=== PATIENT | male | born 1985 | race Caucasian/White ===

== ENCOUNTER 2019-01-09 20:07 | Inpatient (IN) | payer OTHER ==
[2019-01-09] MEDS ORDERED: SODIUM CHLORIDE 0.9% 1,000 ML IV STA (20:16)
--- NOTE | 2019-01-09 20:29 | ED ---
General Adult HPI - General Chief complaint: Overdose Stated complaint: overdose Time Seen by Provider: 01/09/19 20:16 Source: patient, RN notes reviewed, old records reviewed Mode of arrival: wheelchair Limitations: no limitations - History of Present Illness Initial comments: 33-year-old female presents with suicide attempt, overdose on ibuprofen. Blair bueno took a total of 70 200 mg Motrin at approximately 5 PM followed by 10 800 mg Motrin at approximately 6:30. He also admits to drinking some alcohol. He admits this was a suicide attempt. Denies any other ingestion, no Tylenol or aspirin. He has no physical complaints the time my evaluation. - Related Data Home Medications Medication Instructions Recorded Confirmed No Known Home Medications 01/09/19 01/09/19 Allergies Allergy/AdvReac Type Severity Reaction Status Date / Time No Known Allergies Allergy Verified 01/10/19 13:21 Review of Systems ROS Statement: Those systems with pertinent positive or pertinent negative responses have been documented in the HPI. ROS Other: All systems not noted in ROS Statement are negative. Past Medical History Past Medical History: No Reported History History of Any Multi-Drug Resistant Organisms: None Reported Past Surgical History: No Surgical Hx Reported Past Psychological History: No Psychological Hx Reported Smoking Status: Current every day smoker Past Alcohol Use History: Daily Past Drug Use History: None Reported - Past Family History Grandparents Additional Family Medical History / Comment(s): Grandmother-breast cancer colon cancer. Grandfather-gallbladder cancer. Grandfather of cardiac arrest, thinks he may have had heart disease General Exam Limitations: no limitations General appearance: alert, in no apparent distress Head exam: Present: atraumatic, normocephalic Eye exam: Present: normal appearance, PERRL, EOMI ENT exam: Present: normal exam Neck exam: Present: normal inspection. Absent: tenderness, meningismus Respiratory exam: Present: normal lung sounds bilaterally. Absent: respiratory distress, wheezes Cardiovascular Exam: Present: regular rate, normal rhythm GI/Abdominal exam: Present: soft. Absent: distended, tenderness, guarding Extremities exam: Present: normal inspection, normal capillary refill. Absent: pedal edema Neurological exam: Present: alert, oriented X3, CN II-XII intact. Absent: motor sensory deficit Psychiatric exam: Present: depressed, flat affect, suicidal ideation Skin exam: Present: warm, dry, intact. Absent: cyanosis, diaphoretic Course Vital Signs 01/09/19 01/09/19 01/09/19 20:12 20:50 21:22 Temperature 98.0 F 98.2 F Pulse Rate 77 61 Respiratory 20 18 19 Rate Blood Pressure 122/76 128/80 O2 Sat by Pulse 98 98 Oximetry 01/10/19 01/10/19 01/10/19 02:02 03:00 04:00 Temperature Pulse Rate 78 Respiratory 18 19 17 Rate Blood Pressure 119/81 O2 Sat by Pulse 98 Oximetry 01/10/19 01/10/19 01/10/19 05:00 08:04 09:26 Temperature 97.9 F Pulse Rate 60 64 Respiratory 17 16 16 Rate Blood Pressure 112/76 119/76 O2 Sat by Pulse 100 100 Oximetry 01/10/19 10:26 Temperature Pulse Rate 84 Respiratory 16 Rate Blood Pressure 126/76 O2 Sat by Pulse 99 Oximetry - Reevaluation(s) Reevaluation #1: 01/09/19 2100 Case is discussed with poison control, recommended supportive care, no further recommendations at this time. Patient can be medically cleared at 10 PM. However patient does have alcohol level CLVI, he will be medically cleared when sober. He will be evaluated by EPS at that time. EKG Findings - EKG Comments: EKG Findings:: EKG: Normal sinus rhythm, rate of 63, NC interval 148, QRS duration 98 QTC 423, no signs of ischemia or arrhythmia Medical Decision Making - Medical Decision Making Patient's care was signed out to the oncoming physician Dr. Mirza. Upon review of the medical record it does appear this patient was admitted for psychiatric evaluation and treatment. - Lab Data Result diagrams: 01/09/19 20:09 01/11/19 08:48 Lab Results 01/09/19 01/09/19 01/09/19 Range/Units 20:09 20:09 20:09 WBC 10.1 (3.8-10.6) k/uL RBC 4.90 (4.30-5.90) m/uL Hgb 15.5 (13.0-17.5) gm/dL Hct 45.8 (39.0-53.0) % MCV 93.5 (80.0-100.0) fL MCH 31.5 (25.0-35.0) pg MCHC 33.7 (31.0-37.0) g/dL RDW 13.7 (11.5-15.5) % Plt Count 228 (150-450) k/uL Neutrophils % 62 % Lymphocytes % 25 % Monocytes % 6 % Eosinophils % 4 % Basophils % 1 % Neutrophils # 6.2 (1.3-7.7) k/uL Lymphocytes # 2.5 (1.0-4.8) k/uL Monocytes # 0.6 (0-1.0) k/uL Eosinophils # 0.4 (0-0.7) k/uL Basophils # 0.1 (0-0.2) k/uL Sodium 144 (137-145) mmol/L Potassium 3.7 (3.5-5.1) mmol/L Chloride 103 (98-107) mmol/L Carbon Dioxide 28 (22-30) mmol/L Anion Gap 13 mmol/L BUN 11 (9-20) mg/dL Creatinine 0.79 (0.66-1.25) mg/dL Est GFR (CKD-EPI)AfAm >90 (>60 ml/min/1.73 sqM) Est GFR (CKD-EPI)NonAf >90 (>60 ml/min/1.73 sqM) Glucose 67 L (74-99) mg/dL Plasma Lactic Acid Tyson 1.4 (0.7-2.0) mmol/L Calcium 9.8 (8.4-10.2) mg/dL Magnesium 2.4 H (1.6-2.3) mg/dL Total Bilirubin 0.7 (0.2-1.3) mg/dL AST 40 (17-59) U/L ALT 24 (21-72) U/L Alkaline Phosphatase 84 (38-126) U/L Creatine Kinase 407 H (55-170) U/L Total Protein 8.0 (6.3-8.2) g/dL Albumin 4.7 (3.5-5.0) g/dL Urine Color Urine Appearance (Clear) Urine pH (5.0-8.0) Ur Specific Boron (1.001-1.035) Urine Protein (Negative) Urine Glucose (UA) (Negative) Urine Ketones (Negative) Urine Blood (Negative) Urine Nitrite (Negative) Urine Bilirubin (Negative) Urine Urobilinogen (<2.0) mg/dL Ur Leukocyte Esterase (Negative) Salicylates <1.0 mg/dL Urine Opiates Screen (NotDetected) Ur Oxycodone Screen (NotDetected) Urine Methadone Screen (NotDetected) Ur Propoxyphene Screen (NotDetected) Acetaminophen <10.0 ug/mL Ur Barbiturates Screen (NotDetected) U Tricyclic Antidepress (NotDetected) Ur Phencyclidine Scrn (NotDetected) Ur Amphetamines Screen (NotDetected) U Methamphetamines Scrn (NotDetected) U Benzodiazepines Scrn (NotDetected) Urine Cocaine Screen (NotDetected) U Marijuana (THC) Screen (NotDetected) Serum Alcohol 156 mg/dL 01/09/19 01/09/19 Range/Units 21:51 21:51 WBC (3.8-10.6) k/uL RBC (4.30-5.90) m/uL Hgb (13.0-17.5) gm/dL Hct (39.0-53.0) % MCV (80.0-100.0) fL MCH (25.0-35.0) pg MCHC (31.0-37.0) g/dL RDW (11.5-15.5) % Plt Count (150-450) k/uL Neutrophils % % Lymphocytes % % Monocytes % % Eosinophils % % Basophils % % Neutrophils # (1.3-7.7) k/uL Lymphocytes # (1.0-4.8) k/uL Monocytes # (0-1.0) k/uL Eosinophils # (0-0.7) k/uL Basophils # (0-0.2) k/uL Sodium (137-145) mmol/L Potassium (3.5-5.1) mmol/L Chloride (98-107) mmol/L Carbon Dioxide (22-30) mmol/L Anion Gap mmol/L BUN (9-20) mg/dL Creatinine (0.66-1.25) mg/dL Est GFR (CKD-EPI)AfAm (>60 ml/min/1.73 sqM) Est GFR (CKD-EPI)NonAf (>60 ml/min/1.73 sqM) Glucose (74-99) mg/dL Plasma Lactic Acid Tyson (0.7-2.0) mmol/L Calcium (8.4-10.2) mg/dL Magnesium (1.6-2.3) mg/dL Total Bilirubin (0.2-1.3) mg/dL AST (17-59) U/L ALT (21-72) U/L Alkaline Phosphatase (38-126) U/L Creatine Kinase (55-170) U/L Total Protein (6.3-8.2) g/dL Albumin (3.5-5.0) g/dL Urine Color Light Yellow Urine Appearance Clear (Clear) Urine pH 6.0 (5.0-8.0) Ur Specific Boron 1.004 (1.001-1.035) Urine Protein Negative (Negative) Urine Glucose (UA) Negative (Negative) Urine Ketones Negative (Negative) Urine Blood Negative (Negative) Urine Nitrite Negative (Negative) Urine Bilirubin Negative (Negative) Urine Urobilinogen <2.0 (<2.0) mg/dL Ur Leukocyte Esterase Negative (Negative) Salicylates mg/dL Urine Opiates Screen Not Detected (NotDetected) Ur Oxycodone Screen Not Detected (NotDetected) Urine Methadone Screen Not Detected (NotDetected) Ur Propoxyphene Screen Not Detected (NotDetected) Acetaminophen ug/mL Ur Barbiturates Screen Not Detected (NotDetected) U Tricyclic Antidepress Not Detected (NotDetected) Ur Phencyclidine Scrn Not Detected (NotDetected) Ur Amphetamines Screen Not Detected (NotDetected) U Methamphetamines Scrn Not Detected (NotDetected) U Benzodiazepines Scrn Not Detected (NotDetected) Urine Cocaine Screen Not Detected (NotDetected) U Marijuana (THC) Screen Not Detected (NotDetected) Serum Alcohol mg/dL Disposition Clinical Impression: Suicide attempt, Overdose of nonsteroidal anti-inflammatory drug (NSAID) Disposition: ADMITTED IP TO [facility] Condition: Stable Is patient prescribed a controlled substance at d/c from ED?: No Decision to Admit Reason: Admit from EC
[2019-01-09 20:57] LABS: Basophils # (A) 0.1 k/uL (0-0.2); Basophils % (A) 1 %; Eosinophils # (A) 0.4 k/uL (0-0.7); Eosinophils % (A) 4 %; HCT 45.8 % (39.0-53.0); HGB 15.5 gm/dL (13.0-17.5); Lymphocytes # (A) 2.5 k/uL (1.0-4.8); Lymphocytes % (A) 25 %; MCH 31.5 pg (25.0-35.0); MCHC 33.7 g/dL (31.0-37.0); MCV 93.5 fL (80.0-100.0); Mean Platelet Volume 7.2; Monocytes # (A) 0.6 k/uL (0-1.0); Monocytes % (A) 6 %; Neutrophils # (A) 6.2 k/uL (1.3-7.7); Neutrophils % (A) 62 %; Platelet Count 228 k/uL (150-450); RDW 13.7 % (11.5-15.5); WBC 10.1 k/uL (3.8-10.6)
[2019-01-09 21:07] LABS: ALT 24 U/L (21-72); AST 40 U/L (17-59); Acetaminophen <10.0 ug/mL; Albumin 4.7 g/dL (3.5-5.0); Alkaline Phosphatase 84 U/L (38-126); Anion Gap 13 mmol/L; Blood Urea Nitrogen 11 mg/dL (9-20); Calcium 9.8 mg/dL (8.4-10.2); Carbon Dioxide 28 mmol/L (22-30); Chloride 103 mmol/L (98-107); Creatine Kinase 407 U/L (55-170); Glucose 67 mg/dL (74-99); Magnesium 2.4 mg/dL (1.6-2.3); Potassium 3.7 mmol/L (3.5-5.1); Salicylate <1.0 mg/dL; Sodium 144 mmol/L (137-145); Total Bilirubin 0.7 mg/dL (0.2-1.3)
[2019-01-09 21:29] LABS: Alcohol 156 mg/dL
[2019-01-09 22:02] LABS: Appearance,Urine Clear (Clear); Bilirubin,Urine Negative (Negative); Blood,Urine Negative (Negative); Color,Urine Light Yellow; Glucose,Urine (UA) Negative (Negative); Ketones,Urine Negative (Negative); Leukocyte Esterase,Urine Negative (Negative); Nitrite,Urine Negative (Negative); Protein,Urine Negative (Negative); Specific Gravity,Urine 1.004 (1.001-1.035); Urobilinogen,Urine <2.0 mg/dL (<2.0)
[2019-01-09 22:12] LABS: Amphetamine Screen,Urine Not Detected (NotDetected); Barbiturate Screen,Urine Not Detected (NotDetected); Benzodiazepines Screen,Urine Not Detected (NotDetected); Cocaine Screen,Urine Not Detected (NotDetected); Methadone Screen, Urine Not Detected (NotDetected); Opiate Screen,Urine Not Detected (NotDetected); Oxycodone Screen, Urine Not Detected (NotDetected); Phencyclidine Screen,Urine Not Detected (NotDetected); Tricyclic Antidepressant,Urine Not Detected (NotDetected); Urn Cannabinoid Scrn Not Detected (NotDetected)
[2019-01-10] MEDS: ARTIFICIAL TEARS-HYPROMELLOSE DROPS 15 ML BTL BOTH EYES PRN (01:56)
[2019-01-10] MEDS ORDERED: NICOTINE 21MG/24HR PATCH TRANSDERM STA (02:14)
[2019-01-10] MEDS ORDERED: MAG HYDROX/AL HYDROX/SIMETH 30 ML, HYOSCYAMINE ELIXIR 10 ML, CIMETIDINE HCL 300 MG, LID... PO ONE ×4 (03:55)
[2019-01-10] MEDS ORDERED: FAMOTIDINE 20 MG TAB PO STA (07:39)
[2019-01-10] MEDS ORDERED: LORazepam 1 MG TAB PO PRN (11:42)
[2019-01-10] MEDS ORDERED: MAG HYDROX/AL HYDROX/SIMETH 30 ML CUP PO PRN (11:42)
[2019-01-10] MEDS ORDERED: MAGNESIUM HYDROXIDE 2,400 MG/10 ML CUP PO PRN (11:42)
[2019-01-10] MEDS ORDERED: ACETAMINOPHEN TAB 325 MG TAB PO PRN (11:42)
[2019-01-10] MEDS ORDERED: ZIPRASIDONE 20 MG VIAL IM PRN (11:42)
[2019-01-10 12:55] VITALS: BMI 22.2
[2019-01-10] MEDS: NICOTINE 14MG/24HR PATCH TRANSDERM SCH (13:03)
[2019-01-10 16:27] LABS: Albumin 4.6 g/dL (3.5-5.0); Calcium 9.8 mg/dL (8.4-10.2); Potassium 4.9 mmol/L (3.5-5.1); Total Bilirubin 0.8 mg/dL (0.2-1.3); Total Protein 7.7 g/dL (6.3-8.2)
[2019-01-10] MEDS: PANTOPRAZOLE 40 MG TABLET PO SCH (17:10)
[2019-01-10] MEDS ORDERED: CALCIUM CARBONATE 500 MG CHEWABLE PO PRN (18:30)
--- NOTE | 2019-01-10 18:38 | P.HPMEDMHU ---
History of Present Illness H&P Date: 01/10/19 Chief Complaint: Depression Patient is a 33-year-old male with no significant past medical history who initially presented to the ER after suicide attempt by ingesting 70 pills of 200 mg Motrin and temples of 800 mg Motrin. In the ER he underwent an extensive evaluation. He was medically cleared. Has subsequently been admitted to the mental health unit. Patient seen and examined in library. He states that yesterday evening he became very depressed as his girlfriend broke up with him. They've been texting back and forth, and she was not being receptive. He states he's been depressed about their breakup for the last 3 weeks as he thought that they would get , however she has been partying and using illicit substances. Yesterday her took 70, 200mg and 10, 800 mg Motin. He then drank a 6 pack of beer, and texted his family that he loved them. His sister went to his house and picked him up and brought him here. He intially was having abdominal pain, upset stomach, and some nausea. It has since improved. He has not had and chest pain recently but did back in November, it was sharp and lasted for a few minuts associated with some shortness of breath, and resolved. I encouraged him to see his PCP about this after discharge from [facility] for further evaluation. Integument denies any recent cough, cold, fever, flu, nausea, vomiting, or diarrhea. States he had some enlarged lymph nodes in his right groin a couple of weeks ago he thought it was due to his harness he wears for work and it has resolved. I encouraged him to again see his PCP if this were to recur. Review of Systems Pertinent positives and negatives as discussed in HPI, a complete review of systems was performed and all other systems are negative. Past Medical History Past Medical History: No Reported History History of Any Multi-Drug Resistant Organisms: None Reported Additional Past Surgical History / Comment(s): [place] teeth Past Psychological History: No Psychological Hx Reported Smoking Status: Current every day smoker Past Alcohol Use History: Heavy Additional Past Alcohol Use History / Comment(s): Drinks 2-6 beers 4-6 times weekly Past Drug Use History: None Reported Additional Drug Use History / Comment(s): HX of recreational drug use when younger, nothing currently. Additional History: Lives alone, works as a finishing trimmer - Past Family History Grandparents Additional Family Medical History / Comment(s): Grandmother-breast cancer colon cancer. Grandfather-gallbladder cancer. Grandfather of cardiac arrest, thinks he may have had heart disease Medications and Allergies Home Medications Medication Instructions Recorded Confirmed Type No Known Home Medications 01/09/19 01/09/19 History Allergies Allergy/AdvReac Type Severity Reaction Status Date / Time No Known Allergies Allergy Verified 01/10/19 13:21 Physical Exam Osteopathic Statement: *. No significant issues noted on an osteopathic structural exam other than those noted in the History and Physical/Consult. Vitals: Vital Signs Temp Pulse Pulse Resp BP BP Pulse Ox 01/10/19 12:43 96.6 F L 76 16 132/83 98 01/10/19 12:16 97.9 F 84 16 126/76 99 01/10/19 10:26 84 16 126/76 99 01/10/19 09:26 64 16 119/76 100 01/10/19 08:04 97.9 F 60 16 112/76 100 01/10/19 05:00 17 01/10/19 04:00 17 01/10/19 03:00 19 01/10/19 02:02 78 18 119/81 98 01/09/19 21:22 98.2 F 61 19 128/80 98 01/09/19 20:50 18 01/09/19 20:12 98.0 F 77 20 122/76 98 General: non toxic, no distress, appears at stated age, normal weight Derm: no unusual rashes/lesions no unusual ecchymoses, warm, dry Head: atraumatic, normocephalic, symmetric Eyes: EOMI, no lid lag, anicteric sclera, pupils equal round reactive to light ENT: Nose and ears atraumatic, no thrush, no pharyngeal erythema Neck: No thyromegaly, no cervical lymphadenopathy, trachea midline, supple Mouth: no lip lesion, mucus membranes moist Cardiovascular: S1S2 reg, no murmur, positive posterior tibial pulse bilateral, no edema, capillary refill less than 2 seconds Lungs: CTA bilateral, no rhonchi, no rales , no accessory muscle use Abdominal: soft, + tender to palpation, Periumbilical, no guarding, no appreciable organomegaly, normal bowel sounds Ext: no gross muscle atrophy, muscle strength 5 out of 5 in all 4 extremities grossly, no contractures, Neuro: CN II-XI grossly intact, light touch intact all 4 extremities, finger to nose within normal limits, Psych: Alert, oriented, appropriate affect Cranial Nerve Examination - Cranial Nerves Cranial Nerve II- Optic: Intact Cranial Nerve III- Oculomotor: Intact Cranial Nerve IV- Trochlear: Intact Cranial Nerve V- Trigeminal: Intact Cranial Nerve - Abducens: Intact Cranial Nerve VII- Facial: Intact Cranial Nerve VIII- Auditory: Intact Cranial Nerve IX- Glossopharyngeal: Intact Cranial Nerve X- Vagus: Intact Cranial Nerve XI- Accessory: Intact Cranial Nerve XII- Hypoglossal: Intact Results CBC & Chem 7: 01/09/19 20:09 01/10/19 15:55 Labs: Abnormal Lab Results - Last 24 Hours (Table) 01/09/19 Range/Units 20:09 Glucose 67 L (74-99) mg/dL Magnesium 2.4 H (1.6-2.3) mg/dL Creatine Kinase 407 H (55-170) U/L Thrombosis Risk Factor Assmnt - Choose All That Apply Any of the Below Risk Factors Present?: No Other Risk Factors: No Thrombosis Risk Factor Assessment Level: Very Low Risk Assessment and Plan Assessment: Overdose of salicylate, with suicidal ideation -Stat repeat basic metabolic profile -Repeat renal function again in a.m. -PPI 5 days, when necessary Tums for abdominal pain -Discussed with patient in detail monitoring stools for signs and symptoms of blood -Also asked patient to notify nursing if pain gets worse Tobacco abuse -Cessation -Nicotine replacement Remote history of chest pain -Patient to follow up with PCP and discharged for further evaluation Depression with suicidal ideation -Your psych management Thank you for allowing us to participate in the care of this patient. We will follow peripherally. Do not hesitate to contact us with questions. Someone can be reached from the [facility] hospitalist group at all hours of the day at [phone].
[2019-01-11 01:05] LABS: Hemoglobin A1C 5.5 % (4.0-6.0)
[2019-01-11] MEDS: ARTIFICIAL TEARS-HYPROMELLOSE DROPS 15 ML BTL BOTH EYES PRN ×2 (06:07→22:25)
[2019-01-11] MEDS: PANTOPRAZOLE 40 MG TABLET PO SCH (09:09)
[2019-01-11] MEDS: NICOTINE 14MG/24HR PATCH TRANSDERM SCH (09:10)
[2019-01-11 09:41] LABS: ALT 24 U/L (21-72); AST 28 U/L (17-59); Albumin 4.6 g/dL (3.5-5.0); Alkaline Phosphatase 53 U/L (38-126); Anion Gap 7 mmol/L; Blood Urea Nitrogen 12 mg/dL (9-20); Calcium 9.8 mg/dL (8.4-10.2); Carbon Dioxide 31 mmol/L (22-30); Chloride 104 mmol/L (98-107); Cholesterol 149 mg/dL (<200); Glucose 52 mg/dL (74-99); HDL Cholesterol 80 mg/dL (40-60); LDL Cholesterol,Calculated 51 mg/dL (0-99); Potassium 4.5 mmol/L (3.5-5.1); Sodium 142 mmol/L (137-145); Total Bilirubin 0.8 mg/dL (0.2-1.3); Total Protein 7.3 g/dL (6.3-8.2); Triglycerides 90 mg/dL (<150)
--- NOTE | 2019-01-11 12:00 | P.HP ---
Psychiatric H&P - . History & Physical: Allergies Allergy/AdvReac Type Severity Reaction Status Date / Time No Known Allergies Allergy Verified 01/10/19 13:21 Vital Signs Temp 97.8 F 01/11/19 05:35 Pulse 94 01/11/19 05:35 Resp 18 01/11/19 05:35 BP 115/74 01/11/19 05:35 Pulse Ox 98 01/10/19 12:43 Laboratory Last Values WBC 10.1 k/uL (3.8-10.6) 01/09/19 20:09 RBC 4.90 m/uL (4.30-5.90) 01/09/19 20:09 Hgb 15.5 gm/dL (13.0-17.5) 01/09/19 20:09 Hct 45.8 % (39.0-53.0) 01/09/19 20:09 MCV 93.5 fL (80.0-100.0) 01/09/19 20:09 MCH 31.5 pg (25.0-35.0) 01/09/19 20:09 MCHC 33.7 g/dL (31.0-37.0) 01/09/19 20:09 RDW 13.7 % (11.5-15.5) 01/09/19 20:09 Plt Count 228 k/uL (150-450) 01/09/19 20:09 Neutrophils % 62 % 01/09/19 20:09 Lymphocytes % 25 % 01/09/19 20:09 Monocytes % 6 % 01/09/19 20:09 Eosinophils % 4 % 01/09/19 20:09 Basophils % 1 % 01/09/19 20:09 Neutrophils # 6.2 k/uL (1.3-7.7) 01/09/19 20:09 Lymphocytes # 2.5 k/uL (1.0-4.8) 01/09/19 20:09 Monocytes # 0.6 k/uL (0-1.0) 01/09/19 20:09 Eosinophils # 0.4 k/uL (0-0.7) 01/09/19 20:09 Basophils # 0.1 k/uL (0-0.2) 01/09/19 20:09 Sodium 142 mmol/L (137-145) 01/11/19 08:48 Potassium 4.5 mmol/L (3.5-5.1) 01/11/19 08:48 Chloride 104 mmol/L (98-107) 01/11/19 08:48 Carbon Dioxide 31 mmol/L (22-30) H 01/11/19 08:48 Anion Gap 7 mmol/L 01/11/19 08:48 BUN 12 mg/dL (9-20) 01/11/19 08:48 Creatinine 0.92 mg/dL (0.66-1.25) 01/11/19 08:48 Est GFR (CKD-EPI)AfAm >90 (>60 ml/min/1.73 sqM) 01/11/19 08:48 Est GFR (CKD-EPI)NonAf >90 (>60 ml/min/1.73 sqM) 01/11/19 08:48 Glucose 52 mg/dL (74-99) L 01/11/19 08:[address] Glu mg/dL 111 01/10/19 15:55 Hemoglobin A1c 5.5 % (4.0-6.0) 01/10/19 15:55 Plasma Lactic Acid Tyson 1.4 mmol/L (0.7-2.0) 01/09/19 20:09 Calcium 9.8 mg/dL (8.4-10.2) 01/11/19 08:48 Magnesium 2.4 mg/dL (1.6-2.3) H 01/09/19 20:09 Total Bilirubin 0.8 mg/dL (0.2-1.3) 01/11/19 08:48 AST 28 U/L (17-59) 01/11/19 08:48 ALT 24 U/L (21-72) 01/11/19 08:48 Alkaline Phosphatase 53 U/L (38-126) 01/11/19 08:48 Creatine Kinase 407 U/L (55-170) H 01/09/19 20:09 Total Protein 7.3 g/dL (6.3-8.2) 01/11/19 08:48 Albumin 4.6 g/dL (3.5-5.0) 01/11/19 08:48 Triglycerides 90 mg/dL (<150) 01/11/19 08:48 Cholesterol 149 mg/dL (<200) 01/11/19 08:48 LDL Cholesterol, Calc 51 mg/dL (0-99) 01/11/19 08:48 HDL Cholesterol 80 mg/dL (40-60) H 01/11/19 08:48 TSH 1.280 mIU/L (0.465-4.680) 01/11/19 08:48 Urine Color Light Yellow 01/09/19 21:51 Urine Appearance Clear (Clear) 01/09/19 21:51 Urine pH 6.0 (5.0-8.0) 01/09/19 21:51 Ur Specific [place] 1.004 (1.001-1.035) 01/09/19 21:51 Urine Protein Negative (Negative) 01/09/19 21:51 Urine Glucose (UA) Negative (Negative) 01/09/19 21:51 Urine Ketones Negative (Negative) 01/09/19 21:51 Urine Blood Negative (Negative) 01/09/19 21:51 Urine Nitrite Negative (Negative) 01/09/19 21:51 Urine Bilirubin Negative (Negative) 01/09/19 21:51 Urine Urobilinogen <2.0 mg/dL (<2.0) 01/09/19 21:51 Ur Leukocyte Esterase Negative (Negative) 01/09/19 21:51 Salicylates <1.0 mg/dL 01/09/19 20:09 Urine Opiates Screen Not Detected (NotDetected) 01/09/19 21:51 Ur Oxycodone Screen Not Detected (NotDetected) 01/09/19 21:51 Urine Methadone Screen Not Detected (NotDetected) 01/09/19 21:51 Ur Propoxyphene Screen Not Detected (NotDetected) 01/09/19 21:51 Acetaminophen <10.0 ug/mL 01/09/19 20:09 Ur Barbiturates Screen Not Detected (NotDetected) 01/09/19 21:51 U Tricyclic Antidepress Not Detected (NotDetected) 01/09/19 21:51 Ur Phencyclidine Scrn Not Detected (NotDetected) 01/09/19 21:51 Ur Amphetamines Screen Not Detected (NotDetected) 01/09/19 21:51 U Methamphetamines Scrn Not Detected (NotDetected) 01/09/19 21:51 U Benzodiazepines Scrn Not Detected (NotDetected) 01/09/19 21:51 Urine Cocaine Screen Not Detected (NotDetected) 01/09/19 21:51 U Marijuana (THC) Screen Not Detected (NotDetected) 01/09/19 21:51 Serum Alcohol 156 mg/dL 01/09/19 20:09 01/11/19 11:43 IDENTIFYING DATA: This patient is a 33-year-old single male who was admitted to the mental health unit after an overdose with Motrin in the context of using alcohol. HPI: The patient states that Tuesday night at 5:30 PM while home alone he had overdosed with a total of 80 Motrin tablets while drinking alcohol. This was immediately after taxing his former girlfriend. He states that they were together for 8 months and have been broken up for 1 month. Over the last month they have still been talking and seeing each other intermittently. He became overwhelmed with feelings of loneliness and overdose. Today he states he regrets that he can't believe that he did this in almost ended his life. He states he didn't realize the impact that this would have on his family. He states that ordinarily he is not depressed but he has been depressed over the last 2 weeks. Sleep appetite and energy stable. He continues to work more than a full-time schedule. He is endorsing no tearfulness or crying spells. He endorses no suicidal thoughts at this time. He reports no thoughts of harming others. No history of hypomanic or manic episodes no reported symptoms of psychosis. He denies having any firearms at home. He states he typically does not struggle with symptoms of anxiety in a generalized sense or in the form of panic attacks. He reports he is very well supported by family and would like to be discharged from the hospital soon as possible. PAST PSYCHIATRIC HISTORY: This is first inpatient psychiatric admission. He did have a prior overdose at age 20 but was not hospitalized. He is working with a therapist at [facility] and has seen that person several times. He has never been prescribed any psychotropic medications for depression and anxiety etc. PMH: None reported ALLERGIES: NO KNOWN DRUG ALLERGIES MEDICATIONS: None CHEMICAL DEPENDENCY HISTORY: He reports using alcohol 2-5 times a week ranging from 2-6 beers. He reports no use of marijuana or illicit drugs he's never been placed in residential treatment for chemical dependency reasons FAMILY PSYCHIATRIC HISTORY: Reported no suicides in the family FAMILY CHEMICAL DEPENDENCY HISTORY: Distant aunts and uncles struggling with alcohol use SOCIAL HISTORY: The patient is 33 years old he single he has no children he resides alone. 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 He graduated high school he's earned 2 associate's degrees and began working on a bachelor's. No service. He has 2 sisters. He is originally from the [facility]. He was with his girlfriend for 8 months they broke up approximately one month ago. He states the relationship was strained as she uses illicit drugs and was not available to him. Legal history he was arrested twice for DUI once 17 years old again at 26 years old. Abuse history none reported. MENTAL STATUS EXAM: The patient is a tall male appearing his stated age he has longer hair eye contacts appropriate. Speech is fluent spontaneous n onpressured. He presents with adequate hygiene grooming. He endorses his mood as being much better today. He reports feelings of guilt that he overdosed. He reports no suicidal ideation intent or plan no homicidal ideation intent or plan. He reports no auditory or visual hallucinations or any specific delusions and there is no observable evidence of psychosis. He demonstrates no tangential thinking loose associations or flight of ideas. He does not appear hypomanic or manic. He is oriented to person place and date. He is able to name the days of the week backwards. He demonstrates no verbal or physical aggressiveness. He demonstrates future oriented thinking. STRENGTHS/WEAKNESSES: Drinks: Unemployment, housing, family support weaknesses: Relationship with ex-girlfriend INTELLECTUAL FUNCTIONING: Above average IMPRESSIONS: [] 1. Adjustment disorder with depressed mood, rule out major depressive disorder, rule out alcohol use disorder PLAN: He patient has been admitted to the mental health unit voluntarily. We reviewed his presenting symptoms and treatment options. He does not wish to pursue any medication treatment for depressive symptoms. He is willing to work with an outpatient therapist again upon discharge. We discussed his alcohol use at length he is encouraged to abstain from any alcohol use as it may precipitate feelings of depression and elevate his safety risk. Social work will arrange a support meeting that will likely occur tomorrow. He will be seen by internal medicine for routine history and physical exam. If the patient's determined to have ample support from family and friends he may be appropriate for discharge as soon as tomorrow. He is encouraged to fully participate in the milieu and we will monitor him for safety.
[2019-01-12] MEDS: ARTIFICIAL TEARS-HYPROMELLOSE DROPS 15 ML BTL BOTH EYES PRN (05:43)
[2019-01-12 07:22] VITALS: BP 116/70; PULSE 91; RESP 14; TEMP 97.7
[2019-01-12] MEDS: PANTOPRAZOLE 40 MG TABLET PO SCH (08:15)
[2019-01-12] MEDS: NICOTINE 14MG/24HR PATCH TRANSDERM SCH (08:15)
== END 2019-01-12 09:52 | disposition home or self-care (01) | DRG 881 ==
LOC: EC 20:07 → 3MHU 01-10 11:38
PROVIDERS: ADMIT Psychiatry & Neurology Psychiatry; ATTEND Psychiatry & Neurology Psychiatry
DX: F43.21 Adjustment disorder with depressed mood (principal); F17.200 Nicotine dependence, unspecified, uncomplicated; Z80.0 Family history of malignant neoplasm of digestive organs; Z80.3 Family history of malignant neoplasm of breast; Z91.5 Personal history of self-harm
CPT/HCPCS: 36415; 80053; 80061; 80306; 80320; 80329; 81003; 82075; 82550; 83036; 83520; 83605; 83735; 84443; 85025; 93005

== ENCOUNTER → 2024-12-31 | Outpatient (CLI) | payer OTHER ==
--- NOTE | 2024-12-31 16:30 | US ---
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 These are oval, circumscribed, and located within the subcutaneous fat laye r. Subcutaneous lipomas are suspected. These can be followed clinically. Consider ultrasound follow-u p in 6 months to reassess. If any enlargement is noted or if the areas become symptomatic, surgical e valuation can be considered. [facility], , 12/31/2024 4:28 PM
== END | disposition home or self-care (01) ==
LOC: RADUSWWP 13:25
PROVIDERS: ATTEND Internal Medicine
DX: D17.22 Benign lipomatous neoplasm of skin and subcutaneous tissue of left arm (principal); D17.21 Benign lipomatous neoplasm of skin and subcutaneous tissue of right arm
CPT/HCPCS: 76882

== ENCOUNTER → 2025-02-11 | Outpatient (CLI) | payer OTHER ==
[2025-02-11 10:18] LABS: Appearance,Urine Clear (Clear); Bilirubin,Urine Negative (Negative); Blood,Urine Negative (Negative); Color,Urine Yellow (Yellow); Ketones,Urine Negative (Negative); Nitrite,Urine Negative (Negative); Specific Gravity,Urine 1.005 (1.001-1.030); Urobilinogen,Urine 0.2 E.U./DL
[2025-02-11 10:30] LABS: Basophils # (A) 0.08 X 10*3/uL (0.00-0.10); Eosinophils # (A) 0.25 X 10*3/uL (0.04-0.35); Eosinophils % (A) 3.1 %; HCT 44.8 % (39.6-50.0); HGB 14.8 g/dL (13.0-17.0); Lymphocytes # (A) 2.28 X 10*3/uL (0.90-5.00); Lymphocytes % (A) 28.7 %; MCH 29.8 pg (27.0-32.0); MCV 90.3 FL (80.0-97.0); Monocytes # (A) 0.81 X 10*3/uL (0.20-1.00); Monocytes % (A) 10.2 %; NRBC Per 100 WBC 0 X 10*3/uL (0.00-0.01); Neutrophils # (A) 4.48 X 10*3/uL (1.80-7.70); Neutrophils % (A) 56.5 %; Platelet Count 263 X 10*3/uL (140-440); RBC 4.96 X 10*6/uL (4.40-5.60); RDW 12.6 % (11.5-14.5); WBC 7.94 X 10*3/uL (4.50-10.00)
[2025-02-11 10:54] LABS: ALT 28 U/L (10-49); AST 27 U/L (14-35); Albumin 4.5 g/dL (3.8-4.9); Alkaline Phosphatase 76 U/L (41-126); BUN/Creat Ratio 13.56 Ratio (12.00-20.00); Blood Urea Nitrogen 12.2 mg/dL (9.0-27.0); Calcium 9.3 mg/dL (8.7-10.3); Chloride 102 mmol/L (96-109); Chol/HDL Ratio 3.08 Ratio; Glucose 103 mg/dL (70-110); Potassium 4.3 mmol/L (3.5-5.5); Prostate Specific Antigen 1.09 ng/mL (0.000-2.500); Sodium 138 mmol/L (135-145); Total Bilirubin 0.7 mg/dL (0.3-1.2); Total Protein 7.5 g/dL (6.2-8.2)
== END | disposition home or self-care (01) ==
LOC: LABWHC1 08:11
PROVIDERS: ATTEND Family Medicine
DX: Z00.00 Encounter for general adult medical examination without abnormal findings (principal)
CPT/HCPCS: 36415; 80053; 80061; 81003; 82306; 83036; 84153; 84443; 85025